=== PATIENT | female | born 1995 | race Caucasian/White ===

== ENCOUNTER 2023-03-05 17:56 | Emergency (ER) | payer SELFPAY ==
[2023-03-05 18:02] VITALS: BP 140/102; PULSE 80; RESP 22; TEMP 36.8; O2SAT 98; BMI 53.3
--- NOTE | 2023-03-05 18:09 | XR_ITS ---
The [address] [address] Patient Name: BARRON PEREA MRN: [id number] date: 1995 Sex: F Assigned Patient Location: ER Current Patient Location: ER Accession/Order Number: [id number] Exam Date: 03/05/2023 18:16 Report Date: 03/05/2023 18:32 At the request of: VAMSHI AGUILAR Procedure: XR chest 1V EXAMINATION: XR chest 1V HISTORY: Cough COMPARISON: None. TECHNIQUE: Portable chest FINDINGS: The lung parenchyma is free of consolidation or infiltrate. No pneumothorax or pleural effusion. The cardiac, mediastinal and hilar contours are normal. The visualized osseous structures exhibit no gross abnormality. XR/XR chest 1V IMPRESSION: No acute cardiopulmonary abnormality. Electronically authenticated by: MYLES RAMIREZ Date: 03/05/2023 18:32
--- NOTE | 2023-03-05 18:10 | ED_ITS ---
HPI - URI/Sore Throat General Chief Complaint: Upper Respiratory Infection Time Seen by Provider: 03/05/23 17:59 Source: patient Limitations: no limitations History of Present Illness HPI Narrative: patient is a 27-year-old female who presents to the emergency department for a two week history of cough. She states she developed nasal congestion and upper respiratory symptoms two weeks ago and has had worsening cough that is deep, barky with no sputum production. No fevers. She has had no vomiting or diarrhea. No concern for . She states that she had Covid in the past which has caused her to need nebulizer treatments, she has a history of childhood asthma. She recently moved from [facility] and does not have her nebulizer machine. No other medications taken prior to arrival. Related Data Previous Rx's Medication Instructions Recorded albuterol sulfate 2.5 mg/3 mL 2.5 mg (3 mL) inhalation Q6H PRN 03/05/23 (0.083 %) solution for nebulization shortness of breath or wheezing #90 mL azithromycin 250 mg tablet See Rx Instructions PO .COMPLEX #6 03/05/23 (Zithromax Z-Jm) tabs bwfnbmtewkcvcwp-cokjwwovvblsutq-ET 10 ml PO Q6H PRN cold symptoms 03/05/23 2 mg-30 mg-10 mg/5 mL oral syrup #200 mL (Bromfed DM) prednisone 20 mg tablet See Rx Instructions .Route 03/05/23 .COMPLEX #12 tabs Allergies Allergy/AdvReac Type Severity Reaction Status Date / Time No Known Drug Allergies Allergy Verified 03/05/23 18:05 Review of Systems ROS Constitutional Denies: fever or chills Ears, nose, mouth, and throat Reports: throat pain and nasal congestion Cardiovascular Denies: chest pain Respiratory Reports: cough; Denies: shortness of breath Gastrointestinal Denies: nausea or vomiting Musculoskeletal Denies: back pain Integumentary/Breast Denies: rash Neurological Denies: headache Endocrine Denies: excessive urination Hematologic/Lymphatic Denies: easy bruising Exam Narrative Exam Narrative: Gen.: Awake, alert, in no distress Head: Normocephalic, atraumatic ENT: Moist mucous membranes; bilateral tympanic membranes clear, no pharyngeal erythema Respiratory: No respiratory distress, lungs clear bilaterally; deep cough noted with no wheezing or rhonchi Cardio: Regular rate and rhythm Extremities: Moves extremities equally Psych: Normal mood and affect Neuro: No focal neuro deficit Skin: Warm, dry, intact Constitutional Vital Signs, click to edit/add: Last Vital Signs Temp 98.3 F 03/05/23 18:02 Pulse 107 H 03/05/23 18:19 Resp 20 03/05/23 18:19 BP 140/102 H 03/05/23 18:02 Pulse Ox 96 03/05/23 18:19 O2 Del Method Room Air 03/05/23 18:19 Course Vital Signs Vital signs: Vital Signs Temperature 98.3 F 03/05/23 18:02 Pulse Rate 80 03/05/23 18:02 Respiratory Rate 22 03/05/23 18:02 Blood Pressure 140/102 H 03/05/23 18:02 Pulse Oximetry 98 03/05/23 18:02 Oxygen Delivery Method Room Air 03/05/23 18:02 Temperature 98.3 F 03/05/23 18:02 Pulse Rate 107 H 03/05/23 18:19 Respiratory Rate 20 03/05/23 18:19 Blood Pressure 140/102 H 03/05/23 18:02 Pulse Oximetry 96 03/05/23 18:19 Oxygen Delivery Method Room Air 03/05/23 18:19 MDM - URI/Sore Throat MDM Narrative Medical decision making narrative: patient given a breathing treatment in the Emergency Room, chest x-rays unremarkable. She is treated based on the duration of her symptoms with Z-Jm, Bromfed-DM, prednisone and albuterol inhaler. She was given a prescription for a nebulizer machine that she can fill tomorrow, follow-up with PCP and return to the Emergency Room if symptoms change or worsen. Medical Records Attestation: I reviewed the patient's medical records. Imaging Data Chest x-ray: Attestation: I have reviewed the pertinent imaging results. Radiologist's impression: Procedure: XR chest 1V EXAMINATION: XR chest 1V HISTORY: Cough COMPARISON: None. TECHNIQUE: Portable chest FINDINGS: The lung parenchyma is free of consolidation or infiltrate. No pneumothorax or pleural effusion. The cardiac, mediastinal and hilar contours are normal. The visualized osseous structures exhibit no gross abnormality. IMPRESSION: No acute cardiopulmonary abnormality. Electronically authenticated by: MYLES RAMIREZ Date: 03/05/2023 18:32 Discharge Plan Discharge Chief Complaint: Upper Respiratory Infection Clinical Impression: Upper respiratory infection Patient Disposition: Home, Self-Care Time of Disposition Decision: 18:42 Condition: Good Prescriptions / Home Meds: New albuterol sulfate 2.5 mg /3 mL (0.083 %) solution for nebulization 2.5 mg inhalation Q6H PRN (Reason: shortness of breath or wheezing) Qty: 90 0RF azithromycin [Zithromax Z-Jm] 250 mg tablet See Rx Instructions .ROUTE .COMPLEX Qty: 6 0RF Rx Instructions: For 250 mg dose pack: take 500 mg today (day 1), then 250 mg for 4 days (days 2-5) prednisone 20 mg tablet See Rx Instructions .ROUTE .COMPLEX Qty: 12 0RF Rx Instructions: 3 tabs daily for 2 days, then 2 tabs daily for 2 days, then 1 tab daily for 2 days sscbwkaelsilalm-yyrkbxiva-QK [Bromfed DM] 2-30-10 mg/5 mL syrup 10 ml PO Q6H PRN (Reason: cold symptoms) Qty: 200 0RF Instructions: Acute Bronchitis (ED) Stand Alone Forms: Portal Instructions Referrals: Physician,Non-Staff, MD [Primary Care Provider] - 1 week
[2023-03-05 18:14] VITALS: O2SAT 98
[2023-03-05 18:19] VITALS: PULSE 107; RESP 20; O2SAT 96
[2023-03-05] MEDS: AZITHROMYCIN 250 MG TABLET 500 MG PO (18:56)
[2023-03-05] MEDS: ALBUTEROL SULFATE 200 PUFF/6.7 GM INHALER IH (18:57)
[2023-03-05] MEDS: PREDNISONE 20 MG TABLET 60 MG PO (18:57)
[2023-03-05 19:00] VITALS: PULSE 80; RESP 16; O2SAT 95
[2023-03-05] MEDS: ALBUTEROL SULFATE 2.5 MG/3 ML VIAL NEB IH (19:09)
== END 2023-03-05 19:05 | disposition home or self-care (01) ==
PROVIDERS: Emergency Provider Emergency Medicine
DX: J06.9 Acute upper respiratory infection, unspecified (principal); Z86.16 Personal history of COVID-19
CPT/HCPCS: 71045; 94640; 99284